=== PATIENT | male | born 1955 | race Caucasian/White ===

== ENCOUNTER 2019-09-22 06:25 | Day surgery (SDC) | payer OTHER | END 2019-09-22 10:25 | disposition home or self-care (01) | LOC: AMB-ENDOS 06:25 → ADM 15:15 | DX: D12.3 Benign neoplasm of transverse colon (principal); K62.1 Rectal polyp; K64.8 Other hemorrhoids; Z12.11 Encounter for screening for malignant neoplasm of colon ==

== ENCOUNTER → 2021-02-28 | Day surgery (SDC) | payer OTHER | END | disposition home or self-care (01) | LOC: ADM 02-26 12:45 → AMB-ENDOS 08:33 | PROVIDERS: ATTEND Colon & Rectal Surgery | DX: K62.89 Other specified diseases of anus and rectum (principal); K64.8 Other hemorrhoids; Z20.822 Contact with and (suspected) exposure to COVID-19; Z12.11 Encounter for screening for malignant neoplasm of colon ==

== ENCOUNTER 2024-09-22 06:00 | Day surgery (SDC) | payer OTHER ==
[2024-09-22] MEDS ORDERED: fentaNYL CITRATE 50 MCG/ML AMPUL IV PUSH ONE (09:15)
[2024-09-22] MEDS ORDERED: ONDANSETRON HCL 2 MG/ML VIAL IV ONE (09:15)
[2024-09-22] MEDS ORDERED: DIPHENHYDRAMINE HCL 50 MG/ML VIAL 1ML IV ONE (09:15)
[2024-09-22] MEDS ORDERED: MIDAZOLAM HCL 2 MG/2 ML VIAL IV ONE (09:15)
== END 2024-09-22 11:20 | disposition home or self-care (01) ==
LOC: AMB-ENDOS 06:00 → CIR.AMB 13:45
PROVIDERS: ATTEND Colon & Rectal Surgery
DX: D12.2 Benign neoplasm of ascending colon (principal); D12.5 Benign neoplasm of sigmoid colon; K62.1 Rectal polyp; K63.5 Polyp of colon